=== PATIENT | male | born 1990 | race African-American/Black ===

== ENCOUNTER 2019-10-20 17:25 | Emergency (ER) | payer OTHER ==
[~2019-10-20] VITALS: Ht 177.8 cm; Wt 57.4 kg
[2019-10-20] MEDS ORDERED: IV NORMAL SALINE 1000ML BAG 1,000 ML IV ONE (18:00)
--- NOTE | 2019-10-20 18:01 | PHYS DOC ---
Past Medical History Additional Past Medical Histor: Left shoulder dislocation (ORLIN HARMON DO) Past Surgical History: No Surgical History (ORLIN HARMON DO) Smoking Status: Current Some Day Smoker Alcohol Use: Occasionally Drug Use: None (ORLIN HARMON DO) General Adult EDM: Chief Complaint: SHOULDER INJURY HPI: HPI: Patient is a 29 year old male presents with report of left shoulder pain and concern he dislocated his shoulder while patient was at work 1640. Patient reports he went to reach while cleaning and felt the shoulder dislocate. Denies any numbness or tingling. Denies fall. Reports has had this happen in the past. Reports last was seen approximately 5 years ago at [facility] for same. Denies taking any medication prior to arrival for pain. (ORLIN HARMON DO) Review of Systems: Review of Systems: Constitutional: Denies fever or chills Eyes: Denies redness or eye pain HENT: Denies nasal congestion or sore throat Respiratory: Denies cough or shortness of breath Cardiovascular: Denies chest pain or palpitations GI: Denies abdominal pain, nausea, or vomiting : Denies dysuria or hematuria Musculoskeletal: Denies back pain; reports left shoulder pain Integument: Denies rash or skin lesions Neurologic: Denies headache, focal weakness or sensory changes Complete systems were reviewed and found to be within normal limits, except as documented in this note. (ORLIN HARMON DO) Physical Exam: PE: Constitutional: Well developed, well nourished, no acute distress, non-toxic appearance HENT: Normocephalic, atraumatic, oropharynx moist Eyes: PERRL, EOMI, conjunctiva normal, no discharge Neck: Normal range of motion, no tenderness, supple Cardiovascular: Heart rate normal, regular rhythm Lungs & Thorax: Bilateral breath sounds clear to auscultation, no wheezing Skin: Warm, dry, no erythema, no rash Extremities: Left shoulder with dimpling superior to glenohumeral joint, ROM limited due to pain, left radial pulse +2, distal sensation intact, limb held in patient's sling from home Neurologic: Alert and oriented X 3, normal motor function, normal sensory function, no focal deficits noted Psychologic: Affect normal, judgment normal (ORLIN HARMON DO) EKG: EKG: [] (ORLIN HARMON DO) Radiology/Procedures: Radiology/Procedures: [] (ORLIN HARMON DO) Course & Med Decision Making: Course & Med Decision Making Patient presents with HPI and physical exam concerning for left shoulder d islocation. Patient neurologically intact. Limb neurovascularly intact. Pain addressed. X-ray pending. Sign out given to Dr. Duvall for further evaluation and final disposition. Discussed current findings and plan with patient, who acknowledges understanding and agreement. (ORLIN HARMON DO) Course & Med Decision Making Patient care was accepted from Dr. Harmon at 6:00 PM. After informed consent obtained, and after timeout performed, patient was treated with moderate sedation with a total of 50 mg of propofol, after which patient adequately anesthetized and gentle traction/countertraction to the left shoulder was performed with palpable reduction to normal anatomic alignment. Patient tolerated procedure well without any hypoxic episodes. Patient observed in emergency room until return to complete baseline mental status. (ASHOK DUVALL Jr., DO) Dragon Disclaimer: Dragon Disclaimer: This electronic medical record was generated, in whole or in part, using a voice recognition dictation system. (ORLIN HARMON DO) Departure Departure Impression: Primary Impression: Dislocation of left shoulder joint Qualified Codes: S43.005A - Unspecified dislocation of left shoulder joint, initial encounter Disposition: HOME, SELF-CARE Condition: STABLE Referrals: NO PCP (PCP) Patient Instructions: Shoulder Dislocation Scripts Diclofenac Sodium (DICLOFENAC SODIUM) 50 Mg Tablet. 1 TAB PO BID PRN for PAIN, #20 TAB Prov: ASHOK DUVALL Jr., DO 10/20/19 Justicifation of Admission Dx: Justifications for Admission: Justification of Admission Dx: N/A (ORLIN HARMON DO) ORLIN HARMON DO Oct 20, 2019 18:01 ASHOK DUVALL Jr., DO Oct 20, 2019 19:07
[2019-10-20] MEDS ORDERED: PROPOFOL 10 MG/ML (20ML) VIAL. IV ONE (18:15)
--- NOTE | 2019-10-20 18:18 | RAD ---
EXAM: Left shoulder, 2 views. HISTORY: Pain. COMPARISON: None. FINDINGS: 2 views of left shoulder obtained. There is anterior left shoulder dislocation. There is a small radiodense foreign body overlying the scapula. IMPRESSION: Anterior left shoulder dislocation. Follow-up following closed reduction is recommended to assess for possible concomitant fracture. Electronically signed by: Vesna Colon MD (10/20/2019 6:15 PM) [facility]
[2019-10-20] MEDS ORDERED: fentaNYL PF VIAL 100 MCG/2 ML VIAL IV ONE (18:30)
--- NOTE | 2019-10-20 18:59 | RAD ---
EXAM: Left shoulder, 2 views. HISTORY: Dislocation. COMPARISON: 10/19/2018. FINDINGS: 2 views of the left shoulder obtained. There has been closed reduction of the shoulder into anatomic alignment. No concomitant fracture is seen. There is a prominent acromioclavicular joint space which is likely physiologic. IMPRESSION: Closed reduction of the left shoulder into anatomic alignment. Electronically signed by: Vesna Colon MD (10/20/2019 6:56 PM) [facility]
[2019-10-20] MEDS ORDERED: DICL50TA4 PO (19:05)
[2019-10-20 19:20] VITALS: BP 146/92
[2019-10-20 19:25] VITALS: BP 146/91
== END 2019-10-20 19:35 | disposition home or self-care (01) ==
LOC: ER 17:25
DX: S43.315A Dislocation of left scapula, initial encounter (principal); R20.2 Paresthesia of skin; F17.200 Nicotine dependence, unspecified, uncomplicated; W18.39XA Other fall on same level, initial encounter; Y93.E9 Activity, other interior property and clothing maintenance; Y92.89 Other specified places as the place of occurrence of the external cause; Y99.0 Civilian activity done for income or pay
CPT/HCPCS: 23650; 73030; 96374; 99285; J2704; J3010; J7030